=== PATIENT | female | born 1960 | race African-American/Black ===

== ENCOUNTER 2018-05-17 12:36 | Emergency (ER) | payer MEDICAID ==
[~2018-05-17] VITALS: Ht 170.2 cm; Wt 77.0 kg
[~2018-05-17 12:36] MED LIST: BENA20TA77; KEPP250; PHEN100C4
[2018-05-17] MEDS ORDERED: IBUPROFEN 600MG TABLET PO ONE (15:15)
[2018-05-17 16:41] VITALS: BP 120/88
== END 2018-05-17 16:51 | disposition home or self-care (01) ==
LOC: ER 13:32
DX: M25.562 Pain in left knee (principal); G89.29 Other chronic pain; I10 Essential (primary) hypertension; Z96.659 Presence of unspecified artificial knee joint; Z79.899 Other long term (current) drug therapy
CPT/HCPCS: 73560; 99283; Z7610

== ENCOUNTER 2018-10-25 18:32 | Emergency (ER) | payer MEDICAID ==
[~2018-10-25] VITALS: Ht 167.6 cm; Wt 73.0 kg
[2018-10-25] MEDS ORDERED: KETOROLAC 15MG/ML VIAL IM ONE (20:15)
[2018-10-25 21:01] VITALS: BP 129/84
== END 2018-10-25 21:09 | disposition home or self-care (01) ==
LOC: ER 18:38
DX: R07.9 Chest pain, unspecified (principal); R07.81 Pleurodynia; M54.6 Pain in thoracic spine; Z86.79 Personal history of other diseases of the circulatory system; Z79.899 Other long term (current) drug therapy; I10 Essential (primary) hypertension; Z96.651 Presence of right artificial knee joint
CPT/HCPCS: 93005; 96372; 99283; J1885; Z7610

== ENCOUNTER 2018-11-13 11:39 | Emergency (ER) | payer MEDICAID ==
[~2018-11-13] VITALS: Ht 167.6 cm; Wt 75.0 kg
[2018-11-13 11:47] VITALS: BP 120/80
[2018-11-13] MEDS ORDERED: KETOROLAC 60MG/2ML VIAL IM ONE (12:30)
== END 2018-11-13 13:25 | disposition home or self-care (01) ==
LOC: ER 12:06
DX: M25.511 Pain in right shoulder (principal); M54.10 Radiculopathy, site unspecified; I10 Essential (primary) hypertension; Z86.79 Personal history of other diseases of the circulatory system; Z90.710 Acquired absence of both cervix and uterus; Z96.653 Presence of artificial knee joint, bilateral; Z85.3 Personal history of malignant neoplasm of breast; Z79.899 Other long term (current) drug therapy; X50.0XXA Overexertion from strenuous movement or load, initial encounter; Y93.89 Activity, other specified; Y92.89 Other specified places as the place of occurrence of the external cause; Y99.8 Other external cause status
CPT/HCPCS: 96372; 99283; J1885

== ENCOUNTER 2019-01-05 17:43 | Emergency (ER) | payer MEDICAID ==
[~2019-01-05] VITALS: Ht 167.6 cm; Wt 73.0 kg
[2019-01-05] MEDS ORDERED: IBUPROFEN 800MG TABLET PO ONE (18:30)
[2019-01-05 19:43] VITALS: BP 118/74
== END 2019-01-05 19:47 | disposition home or self-care (01) ==
LOC: ER 17:43
DX: M25.562 Pain in left knee (principal); M25.462 Effusion, left knee; I10 Essential (primary) hypertension; R56.9 Unspecified convulsions; Z90.710 Acquired absence of both cervix and uterus; Z96.652 Presence of left artificial knee joint
CPT/HCPCS: 29505; 73560; 99283; L1830

== ENCOUNTER 2019-12-10 16:26 | Emergency (ER) | payer MEDICAID ==
[~2019-12-10] VITALS: Ht 167.6 cm; Wt 72.5 kg
[2019-12-10 16:29] VITALS: BP 112/79
[2019-12-10] MEDS ORDERED: ACETAMINOPHEN WITH CODEINE 300/30MG TABLET PO STA (17:04)
[2019-12-10] MEDS ORDERED: KETOROLAC 60MG/2ML VIAL IM STA (17:04)
== END 2019-12-10 18:20 | disposition home or self-care (01) ==
LOC: ER 16:26
DX: M25.562 Pain in left knee (principal); M25.552 Pain in left hip; I10 Essential (primary) hypertension; Z90.710 Acquired absence of both cervix and uterus
CPT/HCPCS: 73502; 73560; 96372; 99284; J1885

== ENCOUNTER 2020-12-07 16:42 | Emergency (ER) | payer MEDICAID ==
[~2020-12-07] VITALS: Ht 167.6 cm; Wt 78.0 kg
[2020-12-07] MEDS ORDERED: OXYMETAZOLINE HCL NASAL SPRAY 15ML BOTHNSTRLS SCH (22:00)
[2020-12-07 22:33] LABS: BASOPHILS % 0.3 % (0.0-2.0); EOSINOPHILS % 0.4 % (0.0-5.0); HEMATOCRIT. 36.2 % (36.0-48.0); LYMPHOCYTES % 33.2 % (20.0-50.0); MEAN CORPUSCULAR HEMOGLOBIN 27.7 pg (28.0-32.0); MEAN CORPUSCULAR VOLUME 83.8 fL (81.0-99.0); MEAN PLATELET VOLUME 8.2 fl (7.4-10.4); MONOCYTES % 7.3 % (2.0-8.0); NEUTROPHILS % 58.8 % (40.0-76.0); PLATELET 232 x1000/uL (130-400); RED BLOOD CELL COUNT 4.32 mill/uL (4.2-5.4); RED CELL DISTRIBUTION WIDTH 14.9 % (11.6-14.6)
[2020-12-07 22:40] LABS: CHLORIDE 104 mEq/L (98-107)
[2020-12-08 00:10] VITALS: BP 130/73
== END 2020-12-08 00:12 | disposition home or self-care (01) ==
LOC: ER 16:42
DX: R04.0 Epistaxis (principal); I10 Essential (primary) hypertension; Z90.710 Acquired absence of both cervix and uterus; Z98.890 Other specified postprocedural states; Z79.899 Other long term (current) drug therapy
CPT/HCPCS: 36415; 80053; 85025; 93005; 99284

== ENCOUNTER 2021-11-26 08:43 | Emergency (ER) | payer MEDICAID, OTHER ==
[~2021-11-26] VITALS: Ht 167.6 cm; Wt 75.0 kg
[2021-11-26 09:16] VITALS: BP 124/87
[2021-11-26] MEDS ORDERED: ACETAMINOPHEN 325MG TABLET PO ONE (09:30)
[2021-11-26 09:58] LABS: CLARITY URINE CLOUDY (CLEAR); COLOR URINE YELLOW (YELLOW); KETONES URINE TRACE (NEGATIVE); LEUKOCYTE ESTERASE URINE NEGATIVE (NEGATIVE); NITRITE URINE NEGATIVE (NEGATIVE); OCCULT BLOOD URINE NEGATIVE (NEGATIVE); PH URINE 5.5 (4.5-8.0); PROTEIN URINE TRACE (NEGATIVE); SPECIFIC GRAVITY URINE 1.027 (1.005-1.030); UROBILINOGEN URINE 0.2 E.U./dL (0.2-1.0)
[2021-11-26 10:07] LABS: BASOPHILS % 0.1 % (0.0-2.0); EOSINOPHILS % 0.6 % (0.0-5.0); HEMOGLOBIN. 12.4 g/dL (12.0-16.0); LYMPHOCYTES % 21.6 % (20.0-50.0); MEAN CORPUSCULAR HEMOGLOBIN 26.9 pg (28.0-32.0); MEAN CORPUSCULAR VOLUME 84.4 fL (81.0-99.0); MEAN PLATELET VOLUME 8.3 fl (7.4-10.4); NEUTROPHILS % 69.7 % (40.0-76.0); PLATELET 260 x1000/uL (130-400); RED BLOOD CELL COUNT 4.62 mill/uL (4.2-5.4)
[2021-11-26 10:14] LABS: CHLORIDE 106 mEq/L (98-107)
[2021-11-26] MEDS ORDERED: POLY119P2 MT (11:06)
[2021-11-26] MEDS: POLYETHYLENE GLYCOL 3350 (17GM) 1 DOSE PACK PO NR ×2 (11:26→11:27)
== END 2021-11-26 11:31 | disposition home or self-care (01) ==
LOC: ER 08:43
DX: K59.00 Constipation, unspecified (principal); I10 Essential (primary) hypertension; R56.9 Unspecified convulsions; Z90.710 Acquired absence of both cervix and uterus; Z96.659 Presence of unspecified artificial knee joint
CPT/HCPCS: 36415; 74018; 80053; 81003; 83690; 85025; 99284; Z7610

== ENCOUNTER 2022-05-11 10:19 | Emergency (ER) | payer OTHER ==
[~2022-05-11] VITALS: Ht 162.6 cm; Wt 67.0 kg
[~2022-05-11 10:19] MED LIST changes: +POLY119P2 MT
[2022-05-11 10:35] VITALS: BP 136/91
== END 2022-05-11 14:49 | disposition home or self-care (01) ==
LOC: ER 10:19
DX: M17.11 Unilateral primary osteoarthritis, right knee (principal); I10 Essential (primary) hypertension; G40.909 Epilepsy, unspecified, not intractable, without status epilepticus; I34.1 Nonrheumatic mitral (valve) prolapse; Z96.652 Presence of left artificial knee joint; Z90.710 Acquired absence of both cervix and uterus
CPT/HCPCS: 73562; 99283; L1830

== ENCOUNTER 2022-11-05 16:55 | Emergency (ER) | payer OTHER ==
[~2022-11-05] VITALS: Ht 165.1 cm; Wt 75.0 kg
[2022-11-05 16:56] VITALS: O2SAT 100
[2022-11-05] MEDS ORDERED: LEVETIRACETAM 500MG PREMIX 100 ML IV ONE (17:15)
[2022-11-05] MEDS ORDERED: ASPIRIN 81MG TABLET PO ONE (17:15)
[2022-11-05 17:41] LABS: BASOPHILS % 0.1 % (0.0-2.0); EOSINOPHILS % 1.1 % (0.0-5.0); HEMATOCRIT. 39.5 % (36.0-48.0); HEMOGLOBIN. 12.8 g/dL (12.0-16.0); LYMPHOCYTES % 38.2 % (20.0-50.0); MEAN CORPUSCULAR HEMOGLOBIN 27.7 pg (28.0-32.0); MEAN CORPUSCULAR HGB CONC 32.3 g/dL (31.0-37.0); MEAN CORPUSCULAR VOLUME 85.7 fL (81.0-99.0); MEAN PLATELET VOLUME 8.5 fl (7.4-10.4); MONOCYTES % 8.6 % (2.0-8.0); PLATELET 219 x1000/uL (130-400); RED BLOOD CELL COUNT 4.61 mill/uL (4.2-5.4); RED CELL DISTRIBUTION WIDTH 15.4 % (11.6-14.6)
[2022-11-05 17:57] LABS: CHLORIDE 107 mEq/L (98-107); INDEX HEMOLYSI 1 (1-3); INDEX ICTERIC 1 (1-4); INDEX LIPEMIC 1 (1-3); POTASSIUM 3.7 mEq/L (3.5-5.1); SODIUM 142 mEq/L (136-145)
[2022-11-05 18:06] LABS: ALANINE AMINOTRANSFERASE 23 IU/L (13-61); ALBUMIN 3.6 g/dL (3.4-5.0); ASPARTATE AMINOTRANSFERASE 14 IU/L (15-37); BILIRUBIN TOTAL 0.2 mg/dL (0.1-1.0); CALCIUM 8.2 mg/dL (8.5-10.1); CARBON DIOXIDE 29 mEq/L (21-32); CREATININE 0.8 mg/dL (0.6-1.3); GLUCOSE 103 mg/dL (70-105); PROTEIN TOTAL 7.8 g/dL (6.0-8.3); TROPONIN I HIGH SENSITIVITY 4 ng/L (<54); UREA NITROGEN BLOOD 7 mg/dL (7-21)
[2022-11-05 20:34] LABS: TROPONIN I HIGH SENSITIVITY 4 ng/L (<54)
[2022-11-06 01:10] VITALS: BP 154/92; PULSE 84; RESP 16; TEMP 98.5
== END 2022-11-06 01:22 | disposition left against medical advice (07) ==
LOC: ER 17:01 → CANBEDREQ 19:13 → ER 11-06 01:22
DX: R56.9 Unspecified convulsions (principal); R55 Syncope and collapse; I10 Essential (primary) hypertension; Z79.899 Other long term (current) drug therapy; Z90.710 Acquired absence of both cervix and uterus; Z20.822 Contact with and (suspected) exposure to COVID-19; Z96.651 Presence of right artificial knee joint
CPT/HCPCS: 80053; 85025; 84484; 36415; 71045; 93005; 96365; 99285; 87426; Z7610 ×2; J1953; C9803

== ENCOUNTER 2024-05-08 12:09 | Emergency (ER) | payer OTHER ==
[~2024-05-08] VITALS: Ht 167.6 cm; Wt 72.6 kg
[2024-05-08 12:14] VITALS: BP 174/95; TEMP 36.9; O2SAT 99
[2024-05-08 12:16] VITALS: PULSE 94; RESP 16; O2SAT 97
[2024-05-08] MEDS ORDERED: ACET-2708 MT (17:49)
[2024-05-08] MEDS ORDERED: KETOROLAC 30MG/ML VIAL IM ONE (18:00)
== END 2024-05-08 17:58 | disposition left against medical advice (07) ==
LOC: ER 12:09
DX: G89.29 Other chronic pain (principal); M25.562 Pain in left knee; I10 Essential (primary) hypertension; Z96.653 Presence of artificial knee joint, bilateral; Z90.710 Acquired absence of both cervix and uterus; Z79.899 Other long term (current) drug therapy
CPT/HCPCS: 73560; 99283; Z7610

== ENCOUNTER 2024-10-01 11:07 | Emergency (ER) | payer OTHER ==
[~2024-10-01] VITALS: Ht 167.6 cm; Wt 73.0 kg
[~2024-10-01 11:07] MED LIST changes: +ACET-2708 MT
[2024-10-01 11:12] VITALS: O2SAT 95
[2024-10-01] MEDS: ACETAMINOPHEN 325MG TABLET PO ONE (12:09)
[2024-10-01] MEDS: KETOROLAC 15MG/ML VIAL IM ONE (12:09)
[2024-10-01] MEDS: LIDOCAINE 5% PATCH TOP SCH (12:10)
[2024-10-01] MEDS ORDERED: LIDO-53 TP (12:19)
[2024-10-01 12:53] VITALS: BP 157/91; PULSE 74; RESP 14; TEMP 36.8; O2SAT 98
== END 2024-10-01 12:56 | disposition home or self-care (01) ==
LOC: ER 11:07
DX: M75.32 Calcific tendinitis of left shoulder (principal); I10 Essential (primary) hypertension; I34.1 Nonrheumatic mitral (valve) prolapse; Z96.659 Presence of unspecified artificial knee joint; Z90.710 Acquired absence of both cervix and uterus; Z79.899 Other long term (current) drug therapy
CPT/HCPCS: 73030; 96372; 99283; J1885; Z7610 ×2